=== PATIENT | male | born 1970 | race Asian ===

== ENCOUNTER 2018-12-04 18:18 | Inpatient (IN) | payer MEDICAID ==
[~2018-12-04] VITALS: Ht 170.2 cm; Wt 124.3 kg
[2018-12-04] MEDS ORDERED: HYDROCODONE/ACETAMINOPHEN 5/325MG TABLET PO STA (18:46)
[2018-12-04] MEDS ORDERED: AMLODIPINE 10MG TABLET PO ONE (19:00)
[2018-12-04] MEDS ORDERED: ASPIRIN 81MG TABLET PO ONE (19:00)
[2018-12-04 19:12] LABS: BASOPHILS % 0.6 % (0.0-2.0); HEMATOCRIT. 29.3 % (42.0-52.0); MEAN CORPUSCULAR HEMOGLOBIN 29.4 pg (28.0-32.0); MEAN CORPUSCULAR VOLUME 86.4 fL (80.0-94.0); MEAN PLATELET VOLUME 8.1 fl (7.4-10.4); NEUTROPHILS % 79.4 % (40.0-76.0); PLATELET 256 x1000/uL (130-400); RED CELL DISTRIBUTION WIDTH 15.6 % (11.6-14.6)
[2018-12-04 19:17] LABS: CHLORIDE 113 mEq/L (98-107); PROTHROMBIN TIME 10.5 sec (9.6-11.0)
[2018-12-04] MEDS ORDERED: HYDRALAZINE 20MG/ML VIAL IV ONE (21:15)
[2018-12-04] MEDS ORDERED: DIPHENHYDRAMINE 50MG/ML VIAL IV PRN (22:45)
[2018-12-04] MEDS ORDERED: ONDANSETRON HCL 4MG/2ML INJ IV PRN (22:45)
[2018-12-04] MEDS ORDERED: ACETAMINOPHEN 325MG TABLET PO PRN (22:45)
[2018-12-04] MEDS ORDERED: CLONIDINE 0.1MG TABLET PO PRN (22:45)
[2018-12-04] MEDS ORDERED: MAGNESIUM HYDROXIDE 400MG/5ML 30ML UDC PO PRN (22:45)
[2018-12-04] MEDS ORDERED: HYDRALAZINE 20MG/ML VIAL IV PRN (22:45)
[2018-12-04] MEDS: CLONIDINE 0.2MG TABLET PO PRN (22:53)
[2018-12-05] VITALS: BP 200/100
[2018-12-05] MEDS: HYDROCODONE/ACETAMINOPHEN 10/325MG TABLET PO PRN ×4 (00:13→19:54)
[2018-12-05] MEDS: SODIUM CHLORIDE 0.9% INJ 3ML FLUSH IVF SCH ×3 (00:14→20:39)
[2018-12-05] MEDS: LORAZEPAM 0.5MG TABLET PO PRN ×2 (00:14→20:38)
[2018-12-05 03:42] LABS: *AMPHETAMINES SCREEN URINE NEGATIVE (NEGATIVE); *BARBITURATES SCREEN URINE NEGATIVE (NEGATIVE)
[2018-12-05 03:43] LABS: *BENZODIAZEPINES SCREEN URINE NEGATIVE (NEGATIVE); *COCAINE SCREEN URINE NEGATIVE (NEGATIVE); CANNABINOID URINE SCREEN NEGATIVE (NEGATIVE); METHADONE URINE SCREEN NEGATIVE (NEGATIVE); OPIATES URINE SCREEN NEGATIVE (NEGATIVE); PHENCYCLIDINE URINE SCREEN NEGATIVE (NEGATIVE)
[2018-12-05 04:00] VITALS: BP 170/91
[2018-12-05] MEDS: CLONIDINE 0.2MG TABLET PO PRN (05:52)
[2018-12-05] MEDS: OMEPRAZOLE 20MG CAPSULE EXTENDED RELEASE PO SCH ×2 (05:52→20:39)
[2018-12-05 08:12] VITALS: BP 123/66
[2018-12-05] MEDS: AMLODIPINE 5MG TABLET PO SCH ×2 (08:25→20:38)
[2018-12-05] MEDS: LISINOPRIL 20MG TABLET PO SCH ×2 (08:26→20:38)
[2018-12-05] MEDS: ENOXAPARIN 30MG/0.3ML SYR SUBCUT SCH (08:26)
[2018-12-05 12:00] VITALS: BP 113/75
[2018-12-05 16:00] VITALS: BP 100/64
[2018-12-05 16:16] LABS: HEPATITIS B SURFACE AB 184.3 mIU/mL
[2018-12-05 16:27] LABS: HEPATITIS B SURFACE ANTIGEN NEGATIVE
[2018-12-05 16:56] LABS: HEPATITIS A AB IGM NEGATIVE (NEGATIVE)
[2018-12-05 20:00] VITALS: BP 135/81
[2018-12-06] VITALS: BP 144/92
[2018-12-06 04:00] VITALS: BP 149/94
[2018-12-06] MEDS: HYDROCODONE/ACETAMINOPHEN 10/325MG TABLET PO PRN (04:40)
[2018-12-06] MEDS: OMEPRAZOLE 20MG CAPSULE EXTENDED RELEASE PO SCH (06:07)
[2018-12-06] MEDS: SODIUM CHLORIDE 0.9% INJ 3ML FLUSH IVF SCH (06:07)
[2018-12-06 06:26] LABS: BASOPHILS % 0.6 % (0.0-2.0); EOSINOPHILS % 2.4 % (0.0-5.0); HEMATOCRIT. 32.3 % (42.0-52.0); HEMOGLOBIN. 10.5 g/dL (14.0-18.0); LYMPHOCYTES % 21.4 % (20.0-50.0); MEAN CORPUSCULAR HEMOGLOBIN 28.6 pg (28.0-32.0); MEAN PLATELET VOLUME 8.6 fl (7.4-10.4); MONOCYTES % 8.4 % (2.0-8.0); NEUTROPHILS % 67.2 % (40.0-76.0); PLATELET 246 x1000/uL (130-400); RED BLOOD CELL COUNT 3.67 mill/uL (4.7-6.1); RED CELL DISTRIBUTION WIDTH 15.7 % (11.6-14.6)
[2018-12-06 08:00] VITALS: BP 135/77
[2018-12-06] MEDS: LISINOPRIL 20MG TABLET PO SCH (09:20)
[2018-12-06] MEDS: ENOXAPARIN 30MG/0.3ML SYR SUBCUT SCH (09:21)
[2018-12-06] MEDS: AMLODIPINE 5MG TABLET PO SCH (09:21)
== END 2018-12-06 13:18 | disposition left against medical advice (07) | DRG 425 ==
LOC: ER 19:46 → 7WST 20:39 → EDBEDREQTM 20:42 → EDBEDREQ 20:42 → ENRESERV 22:40
PROVIDERS: ADMIT Internal Medicine; ATTEND Internal Medicine
PROC: 5A1D70Z Performance of Urinary Filtration, Intermittent, Less than 6 Hours Per Day (ICD-10-PCS; principal; 2018-12-05)
PROC: 5A1D70Z Performance of Urinary Filtration, Intermittent, Less than 6 Hours Per Day (ICD-10-PCS; 2018-12-06)
DX: E87.70 Fluid overload, unspecified (principal); I12.0 Hypertensive chronic kidney disease with stage 5 chronic kidney disease or end stage renal disease; I25.10 Atherosclerotic heart disease of native coronary artery without angina pectoris; N18.6 End stage renal disease; Z53.21 Procedure and treatment not carried out due to patient leaving prior to being seen by health care provider; Z95.5 Presence of coronary angioplasty implant and graft; I25.2 Old myocardial infarction; Z99.2 Dependence on renal dialysis; Z79.899 Other long term (current) drug therapy
CPT/HCPCS: 36415; 71045; 73630; 80048; 80305; 86705; 86706; 86709; 86803; 87340; 93005; 96365; 96366; 96375; 99285; J0360; J1650

== ENCOUNTER 2018-12-12 19:34 | Inpatient (IN) | payer MEDICAID, OTHER ==
[~2018-12-12] VITALS: Ht 170.2 cm; Wt 122.5 kg
[2018-12-12 21:10] LABS: BASOPHILS % 0.5 % (0.0-2.0); EOSINOPHILS % 2.8 % (0.0-5.0); HEMATOCRIT. 30.4 % (42.0-52.0); HEMOGLOBIN. 10.1 g/dL (14.0-18.0); LYMPHOCYTES % 21.1 % (20.0-50.0); MEAN CORPUSCULAR HEMOGLOBIN 29.6 pg (28.0-32.0); MEAN CORPUSCULAR VOLUME 88.8 fL (80.0-94.0); MEAN PLATELET VOLUME 8.5 fl (7.4-10.4); MONOCYTES % 8.9 % (2.0-8.0); NEUTROPHILS % 66.7 % (40.0-76.0); PLATELET 254 x1000/uL (130-400); RED BLOOD CELL COUNT 3.43 mill/uL (4.7-6.1); RED CELL DISTRIBUTION WIDTH 15.9 % (11.6-14.6)
[2018-12-12 21:15] LABS: CHLORIDE 113 mEq/L (98-107)
[2018-12-12] MEDS ORDERED: FUROSEMIDE 100MG/10ML VIAL IV STA (21:36)
[2018-12-12] MEDS ORDERED: MORPHINE SULFATE 4 MG/ML CPJ (NOT FOR IM USE) IV ONE (21:45)
[2018-12-12] MEDS ORDERED: INSULIN REGULAR (HUMULIN R) 300UNITS/3ML IV ONE (21:45)
[2018-12-12] MEDS ORDERED: SODIUM BICARBONATE 8.4% 1 MEQ/ML 50ML SYR IV ONE (21:45)
[2018-12-12] MEDS ORDERED: ALBUTEROL (0.083%) 2.5MG/3ML NEB HHN ONE (21:45)
[2018-12-12] MEDS ORDERED: DEXTROSE 50% WATER 50ML SYRINGE IV ONE ×2 (21:45→23:15)
[2018-12-12] MEDS ORDERED: CALCIUM CHLORIDE 1GM/10ML SYR IV ONE (21:45)
[2018-12-12] MEDS ORDERED: ALBUTEROL (0.5%) 2.5MG/0.5ML NEB HHN ONE (22:04)
[2018-12-12] MEDS ORDERED: GUAIFENESIN 200MG/10ML SUGAR FREE UDC PO PRN (23:30)
[2018-12-12] MEDS ORDERED: ONDANSETRON HCL 4MG/2ML INJ IV PRN (23:30)
[2018-12-12] MEDS ORDERED: CLONIDINE 0.1MG TABLET PO PRN (23:30)
[2018-12-12] MEDS ORDERED: DOCUSATE SODIUM 100MG CAPSULE PO PRN (23:30)
[2018-12-12] MEDS ORDERED: ACETAMINOPHEN 325MG TABLET PO PRN (23:30)
[2018-12-13] MEDS: HYDROCODONE/ACETAMINOPHEN 5/325MG TABLET PO PRN ×2 (00:57→04:54)
[2018-12-13 02:02] VITALS: BP 148/74
[2018-12-13 04:00] VITALS: BP 143/73
[2018-12-13 04:54] VITALS: BP 148/74
[2018-12-13 08:06] LABS: CHLORIDE 112 mEq/L (98-107)
[2018-12-13 08:12] LABS: BASOPHILS % 0.5 % (0.0-2.0); HEMATOCRIT. 30.7 % (42.0-52.0); LYMPHOCYTES % 22.7 % (20.0-50.0); MEAN CORPUSCULAR HEMOGLOBIN 28.9 pg (28.0-32.0); MEAN CORPUSCULAR VOLUME 88.5 fL (80.0-94.0); MEAN PLATELET VOLUME 8.6 fl (7.4-10.4); MONOCYTES % 10.4 % (2.0-8.0); NEUTROPHILS % 64.4 % (40.0-76.0); PLATELET 257 x1000/uL (130-400); RED BLOOD CELL COUNT 3.47 mill/uL (4.7-6.1); RED CELL DISTRIBUTION WIDTH 15.8 % (11.6-14.6)
[2018-12-13] MEDS ORDERED: AMLODIPINE 10MG TABLET PO SCH (09:00)
[2018-12-13] MEDS ORDERED: METOPROLOL TARTRATE 25MG TABLET PO SCH (09:00)
[2018-12-13] MEDS ORDERED: LISINOPRIL 20MG TABLET PO SCH (09:00)
== END 2018-12-13 09:02 | disposition left against medical advice (07) | DRG 425 ==
LOC: ER 19:34 → 6WST 22:11 → SUPCPDRO 23:20 → ENRESERV 12-13 00:26
PROVIDERS: ADMIT Hospitalist; ATTEND Hospitalist
DX: E87.5 Hyperkalemia (principal); I12.0 Hypertensive chronic kidney disease with stage 5 chronic kidney disease or end stage renal disease; R07.9 Chest pain, unspecified; I25.2 Old myocardial infarction; R06.02 Shortness of breath; I10 Essential (primary) hypertension; N18.6 End stage renal disease
CPT/HCPCS: 36415; 71045; 82962; 83880; 84484; 93005; 94640; 96372; 96374; 96375; 99291; J1815; J1940; J2270; J3490; J7611; A4315

== ENCOUNTER 2019-03-20 17:49 | Inpatient (IN) | payer SELFPAY ==
[~2019-03-20] VITALS: Ht 167.6 cm; Wt 117.9 kg
[2019-03-20 23:36] LABS: EOSINOPHILS % 2.7 % (0.0-5.0); HEMATOCRIT. 30.8 % (42.0-52.0); HEMOGLOBIN. 10.3 g/dL (14.0-18.0); LYMPHOCYTES % 22.1 % (20.0-50.0); MEAN CORPUSCULAR HEMOGLOBIN 30.2 pg (28.0-32.0); MEAN CORPUSCULAR VOLUME 90.2 fL (80.0-94.0); MONOCYTES % 9.8 % (2.0-8.0); NEUTROPHILS % 64.4 % (40.0-76.0); PLATELET 193 x1000/uL (130-400); RED BLOOD CELL COUNT 3.42 mill/uL (4.7-6.1); RED CELL DISTRIBUTION WIDTH 14.8 % (11.6-14.6)
[2019-03-20 23:48] LABS: CHLORIDE 106 mEq/L (98-107)
[2019-03-20 23:58] LABS: PHOSPHORUS 6.9 mg/dL (2.5-4.9)
[2019-03-21] MEDS ORDERED: ACETAMINOPHEN 650MG/20.3ML UDC PO ONE (02:00)
[2019-03-21 08:54] VITALS: BP 180/104
[2019-03-21 09:15] VITALS: BP 180/104
[2019-03-21] MEDS: METOPROLOL TARTRATE 50MG TABLET PO SCH (09:58)
[2019-03-21] MEDS: LISINOPRIL 40MG TABLET PO SCH (09:59)
[2019-03-21] MEDS: CALCIUM ACETATE 667MG CAPSULE PO SCH ×3 (10:38→17:34)
[2019-03-21] MEDS: FOLIC ACID/VITAMIN B COMP W-C TABLET PO SCH (10:38)
[2019-03-21] MEDS ORDERED: LISI40TA4 MT (10:44)
[2019-03-21] MEDS ORDERED: CALC667T6 PO (10:44)
[2019-03-21] MEDS ORDERED: LOPHC2 MT (10:44)
[2019-03-21 11:00] VITALS: BP 142/93
[2019-03-21] MEDS: HYDROCODONE/ACETAMINOPHEN 10/325MG TABLET PO PRN ×3 (11:47→23:14)
[2019-03-21 12:00] VITALS: BP_SYST 130; BP_SYST 139; BP_DIAS 89; BP_DIAS 96
[2019-03-21] MEDS ORDERED: PNEUMOCOCCAL 23-VAL P-SAC VAC 0.5 ML IM ONE (12:00)
[2019-03-21 16:00] VITALS: BP_SYST 137; BP_SYST 141; BP_DIAS 86; BP_DIAS 87
[2019-03-21 16:37] LABS: HEPATITIS B SURFACE AB 142.8 mIU/mL
[2019-03-21 16:48] LABS: HEPATITIS B SURFACE ANTIGEN NEGATIVE
[2019-03-21 20:00] VITALS: BP 118/61
[2019-03-22] VITALS: BP 132/71
[2019-03-22 04:00] VITALS: BP 128/75
[2019-03-22 06:34] LABS: BASOPHILS % 0.6 % (0.0-2.0); EOSINOPHILS % 3.5 % (0.0-5.0); HEMATOCRIT. 32.9 % (42.0-52.0); HEMOGLOBIN. 11.2 g/dL (14.0-18.0); LYMPHOCYTES % 23.2 % (20.0-50.0); MEAN CORPUSCULAR HEMOGLOBIN 30.7 pg (28.0-32.0); MEAN CORPUSCULAR VOLUME 90.5 fL (80.0-94.0); MONOCYTES % 8.9 % (2.0-8.0); NEUTROPHILS % 63.8 % (40.0-76.0); PLATELET 227 x1000/uL (130-400); RED BLOOD CELL COUNT 3.63 mill/uL (4.7-6.1); RED CELL DISTRIBUTION WIDTH 14.9 % (11.6-14.6)
[2019-03-22 06:57] LABS: PHOSPHORUS 6.2 mg/dL (2.5-4.9)
[2019-03-22 08:00] VITALS: BP 155/83
[2019-03-22] MEDS: FOLIC ACID/VITAMIN B COMP W-C TABLET PO SCH (08:35)
[2019-03-22] MEDS: LISINOPRIL 40MG TABLET PO SCH (08:35)
[2019-03-22] MEDS: CALCIUM ACETATE 667MG CAPSULE PO SCH (08:35)
[2019-03-22] MEDS: METOPROLOL TARTRATE 50MG TABLET PO SCH (08:35)
[2019-03-22] MEDS: HYDROCODONE/ACETAMINOPHEN 10/325MG TABLET PO PRN (08:36)
[2019-03-22 09:00] VITALS: BP 142/75
== END 2019-03-22 09:05 | disposition left against medical advice (07) | DRG 425 ==
LOC: ER 17:49 → 6EST 03-21 00:48 → EDBEDREQTM 03-21 00:50 → EDBEDREQ 03-21 00:50 → EDBEDREQSVC 03-21 00:50 → ENRESERV 03-21 08:08 → 6EST 03-21 18:37
PROVIDERS: ADMIT Internal Medicine; ATTEND Internal Medicine
PROC: 5A1D70Z Performance of Urinary Filtration, Intermittent, Less than 6 Hours Per Day (ICD-10-PCS; principal; 2019-03-21)
DX: E87.70 Fluid overload, unspecified (principal); I12.0 Hypertensive chronic kidney disease with stage 5 chronic kidney disease or end stage renal disease; E66.9 Obesity, unspecified; G89.29 Other chronic pain; I16.0 Hypertensive urgency; I25.10 Atherosclerotic heart disease of native coronary artery without angina pectoris; N18.6 End stage renal disease; D63.8 Anemia in other chronic diseases classified elsewhere; N25.81 Secondary hyperparathyroidism of renal origin; Z82.49 Family history of ischemic heart disease and other diseases of the circulatory system; Z91.15 Patient's noncompliance with renal dialysis; Z98.61 Coronary angioplasty status; Z99.2 Dependence on renal dialysis; Z68.41 Body mass index [BMI] 40.0-44.9, adult; I25.2 Old myocardial infarction; Z71.6 Tobacco abuse counseling
CPT/HCPCS: 36415; 71045; 80048; 83735; 84100; 84484; 86705; 86706; 86803; 87340; 87389; 93005; 99285

== ENCOUNTER 2019-05-09 17:23 | Inpatient (IN) | payer MEDICAID, OTHER ==
[~2019-05-09] VITALS: Ht 175.3 cm; Wt 114.8 kg
[~2019-05-09 17:23] MED LIST: CALC667T6 PO; LISI40TA4 MT; LOPHC2 MT
[2019-05-09] MEDS ORDERED: NITROGLYCERIN 0.4MG TABLET SL SL PRN (17:45)
[2019-05-09 18:14] LABS: BASOPHILS % 0.7 % (0.0-2.0); EOSINOPHILS % 2.1 % (0.0-5.0); HEMATOCRIT. 33.8 % (42.0-52.0); HEMOGLOBIN. 11.2 g/dL (14.0-18.0); LYMPHOCYTES % 20.6 % (20.0-50.0); MEAN CORPUSCULAR HEMOGLOBIN 30.2 pg (28.0-32.0); MEAN PLATELET VOLUME 8.1 fl (7.4-10.4); MONOCYTES % 11.1 % (2.0-8.0); NEUTROPHILS % 65.5 % (40.0-76.0); PLATELET 267 x1000/uL (130-400); RED BLOOD CELL COUNT 3.71 mill/uL (4.7-6.1); RED CELL DISTRIBUTION WIDTH 15.7 % (11.6-14.6)
[2019-05-09 18:18] LABS: CHLORIDE 110 mEq/L (98-107)
[2019-05-09] MEDS ORDERED: ACETAMINOPHEN WITH CODEINE 300/30MG TABLET PO ONE (18:30)
[2019-05-09] MEDS ORDERED: HYDRALAZINE 20MG/ML VIAL IV ONE (19:30)
[2019-05-09 21:15] VITALS: BP 154/83
[2019-05-09] MEDS ORDERED: ACETAMINOPHEN WITH CODEINE 300/30MG TABLET PO PRN (22:00)
[2019-05-09] MEDS ORDERED: HYDRALAZINE 20MG/ML VIAL IV PRN (22:00)
[2019-05-09] MEDS ORDERED: ACETAMINOPHEN 325MG TABLET PO PRN (22:00)
[2019-05-09] MEDS ORDERED: ONDANSETRON HCL 4MG/2ML INJ IV PRN (22:00)
[2019-05-09] MEDS ORDERED: MAGNESIUM/ALUMINUM HYDROXIDE/SIMETHICONE 30ML UDC PO PRN (22:00)
[2019-05-09] MEDS ORDERED: CLONIDINE 0.1MG TABLET PO PRN (22:00)
[2019-05-09] MEDS ORDERED: IPRATROPIUM/ALBUTEROL 0.5-3(2.5)MG/3ML NEB HHN PRN (22:00)
[2019-05-09] MEDS ORDERED: DIPHENHYDRAMINE 50MG/ML VIAL IV PRN (22:00)
[2019-05-09] MEDS: SODIUM CHLORIDE 0.9% INJ 3ML FLUSH IVF SCH (22:16)
[2019-05-09] MEDS: HYDROCODONE/ACETAMINOPHEN 5/325MG TABLET PO PRN (22:17)
[2019-05-09 22:30] VITALS: BP 154/83
[2019-05-09] MEDS ORDERED: SODIUM POLYSTYRENE SULFONATE 15 G/60 ML BOT PO NR (23:00)
[2019-05-10] VITALS: BP 174/92
[2019-05-10 04:00] VITALS: BP 170/113
[2019-05-10] MEDS: SODIUM CHLORIDE 0.9% INJ 3ML FLUSH IVF SCH ×3 (05:02→21:44)
[2019-05-10] MEDS: HYDROCODONE/ACETAMINOPHEN 5/325MG TABLET PO PRN ×4 (05:02→21:51)
[2019-05-10 06:47] LABS: BASOPHILS % 0.5 % (0.0-2.0); EOSINOPHILS % 2.5 % (0.0-5.0); HEMATOCRIT. 30.1 % (42.0-52.0); HEMOGLOBIN. 10.1 g/dL (14.0-18.0); LYMPHOCYTES % 23.5 % (20.0-50.0); MEAN CORPUSCULAR HEMOGLOBIN 30.3 pg (28.0-32.0); MEAN CORPUSCULAR VOLUME 89.7 fL (80.0-94.0); MEAN PLATELET VOLUME 8.2 fl (7.4-10.4); MONOCYTES % 12.5 % (2.0-8.0); PLATELET 251 x1000/uL (130-400); RED BLOOD CELL COUNT 3.35 mill/uL (4.7-6.1); RED CELL DISTRIBUTION WIDTH 15.9 % (11.6-14.6)
[2019-05-10 08:00] VITALS: BP 176/88
[2019-05-10] MEDS: AMLODIPINE 10MG TABLET PO SCH (08:54)
[2019-05-10] MEDS: ATENOLOL 50 MG TABLET PO SCH (08:55)
[2019-05-10 12:00] VITALS: BP 137/86
[2019-05-10 16:00] VITALS: BP 117/69
[2019-05-10 20:00] VITALS: BP 132/87
[2019-05-11] VITALS: BP 142/76
[2019-05-11 04:00] VITALS: BP 130/85
[2019-05-11] MEDS: SODIUM CHLORIDE 0.9% INJ 3ML FLUSH IVF SCH ×3 (05:40→21:43)
[2019-05-11] MEDS: HYDROCODONE/ACETAMINOPHEN 5/325MG TABLET PO PRN ×3 (05:40→19:58)
[2019-05-11 07:06] LABS: BASOPHILS % 0.5 % (0.0-2.0); EOSINOPHILS % 2.5 % (0.0-5.0); HEMATOCRIT. 35.1 % (42.0-52.0); HEMOGLOBIN. 11.7 g/dL (14.0-18.0); LYMPHOCYTES % 17.9 % (20.0-50.0); MEAN CORPUSCULAR HEMOGLOBIN 30.1 pg (28.0-32.0); MEAN CORPUSCULAR VOLUME 90.2 fL (80.0-94.0); MEAN PLATELET VOLUME 7.9 fl (7.4-10.4); MONOCYTES % 10.7 % (2.0-8.0); NEUTROPHILS % 68.4 % (40.0-76.0); PLATELET 230 x1000/uL (130-400); RED BLOOD CELL COUNT 3.89 mill/uL (4.7-6.1)
[2019-05-11 08:00] VITALS: BP_SYST 113; BP_SYST 120; BP_DIAS 58; BP_DIAS 59
[2019-05-11] MEDS: ATENOLOL 50 MG TABLET PO SCH (09:00)
[2019-05-11] MEDS: AMLODIPINE 10MG TABLET PO SCH (09:54)
[2019-05-11 12:00] VITALS: BP 113/58
[2019-05-11 12:31] LABS: HEPATITIS B SURFACE AB 126.5 mIU/mL
[2019-05-11 12:40] LABS: HEPATITIS B SURFACE ANTIGEN NEGATIVE
[2019-05-11 13:07] LABS: HEPATITIS A AB IGM NEGATIVE (NEGATIVE)
[2019-05-11 16:00] VITALS: BP 105/63
[2019-05-11 20:00] VITALS: BP 117/71
[2019-05-12] VITALS: BP 116/65
[2019-05-12 04:00] VITALS: BP 122/74
[2019-05-12] MEDS: SODIUM CHLORIDE 0.9% INJ 3ML FLUSH IVF SCH ×2 (06:33→14:22)
[2019-05-12 06:41] LABS: BASOPHILS % 0.4 % (0.0-2.0); EOSINOPHILS % 1.8 % (0.0-5.0); HEMATOCRIT. 37.9 % (42.0-52.0); HEMOGLOBIN. 12.6 g/dL (14.0-18.0); LYMPHOCYTES % 18.5 % (20.0-50.0); MEAN CORPUSCULAR HEMOGLOBIN 29.7 pg (28.0-32.0); MEAN CORPUSCULAR VOLUME 89.4 fL (80.0-94.0); MEAN PLATELET VOLUME 7.9 fl (7.4-10.4); MONOCYTES % 11.5 % (2.0-8.0); NEUTROPHILS % 67.8 % (40.0-76.0); PLATELET 235 x1000/uL (130-400); RED BLOOD CELL COUNT 4.24 mill/uL (4.7-6.1); RED CELL DISTRIBUTION WIDTH 15.5 % (11.6-14.6)
[2019-05-12 08:00] VITALS: BP 132/76
[2019-05-12] MEDS: AMLODIPINE 10MG TABLET PO SCH (09:39)
[2019-05-12] MEDS: ATENOLOL 50 MG TABLET PO SCH (09:39)
[2019-05-12] MEDS: HYDROCODONE/ACETAMINOPHEN 5/325MG TABLET PO PRN (09:40)
[2019-05-12 11:57] VITALS: BP 106/60
[2019-05-12 16:27] VITALS: BP 104/54
== END 2019-05-12 17:00 | disposition home or self-care (01) | DRG 194 ==
LOC: ER 17:23 → 8WST 18:33 → EDBEDREQTM 18:36 → EDBEDREQ 18:36 → ENRESERV 20:13
PROVIDERS: ADMIT Internal Medicine; ATTEND Internal Medicine
PROC: 5A1D70Z Performance of Urinary Filtration, Intermittent, Less than 6 Hours Per Day (ICD-10-PCS; principal; 2019-05-10)
PROC: 5A1D70Z Performance of Urinary Filtration, Intermittent, Less than 6 Hours Per Day (ICD-10-PCS; 2019-05-11)
DX: I13.2 Hypertensive heart and chronic kidney disease with heart failure and with stage 5 chronic kidney disease, or end stage renal disease (principal); E87.5 Hyperkalemia; N18.6 End stage renal disease; I50.33 Acute on chronic diastolic (congestive) heart failure; I25.2 Old myocardial infarction; I25.10 Atherosclerotic heart disease of native coronary artery without angina pectoris; E66.9 Obesity, unspecified; Z95.5 Presence of coronary angioplasty implant and graft; Z99.2 Dependence on renal dialysis; Z91.19 Patient's noncompliance with other medical treatment and regimen; Z91.15 Patient's noncompliance with renal dialysis; Z68.37 Body mass index [BMI] 37.0-37.9, adult
CPT/HCPCS: 36415; 71045; 80048; 83880; 84484; 86705; 86706; 86709; 86803; 87340; 93005; 96374; 99285; J0360

== ENCOUNTER 2019-05-19 09:21 | Emergency (ER) | payer MEDICAID, OTHER ==
[~2019-05-19] VITALS: Ht 170.2 cm; Wt 125.0 kg
[2019-05-19] MEDS ORDERED: ONDANSETRON HCL 4MG/2ML INJ IV ONE (10:30)
[2019-05-19] MEDS ORDERED: MORPHINE SULFATE 10 MG/ML CPJ IV ONE (10:30)
[2019-05-19 11:00] LABS: BASOPHILS % 0.6 % (0.0-2.0); EOSINOPHILS % 0.9 % (0.0-5.0); HEMATOCRIT. 31.9 % (42.0-52.0); HEMOGLOBIN. 10.7 g/dL (14.0-18.0); LYMPHOCYTES % 11.3 % (20.0-50.0); MEAN CORPUSCULAR HEMOGLOBIN 29.6 pg (28.0-32.0); MEAN CORPUSCULAR VOLUME 87.8 fL (80.0-94.0); MEAN PLATELET VOLUME 8.4 fl (7.4-10.4); NEUTROPHILS % 79.2 % (40.0-76.0); PLATELET 238 x1000/uL (130-400); RED BLOOD CELL COUNT 3.63 mill/uL (4.7-6.1); RED CELL DISTRIBUTION WIDTH 15.2 % (11.6-14.6)
[2019-05-19 11:06] LABS: CHLORIDE 100 mEq/L (98-107)
[2019-05-19 12:45] VITALS: BP 126/80
== END 2019-05-19 12:45 | disposition home or self-care (01) ==
LOC: ER 09:21
DX: M54.2 Cervicalgia (principal); R59.1 Generalized enlarged lymph nodes; N19 Unspecified kidney failure; D64.9 Anemia, unspecified; I11.9 Hypertensive heart disease without heart failure; I25.2 Old myocardial infarction; N28.9 Disorder of kidney and ureter, unspecified; Z79.899 Other long term (current) drug therapy; Z98.890 Other specified postprocedural states
CPT/HCPCS: 36415; 70490; 71045; 80053; 84484; 85025; 87070; 87430; 93005; 96374; 96375; 99284; J2270; J2405; Z7610